=== PATIENT | female | born 1960 | race Caucasian/White ===

== ENCOUNTER 2020-11-13 09:48 | Day surgery (SDC) | payer OTHER ==
[2020-11-08 11:49] VITALS: BMI 17.8
[2020-11-13 11:32] VITALS: TEMP 98.3
[2020-11-13 11:56] VITALS: BP 120/67; PULSE 55
== END 2020-11-13 12:00 | disposition home or self-care (01) ==
LOC: FASU-ENDO 09:48
PROVIDERS: ATTEND Internal Medicine Gastroenterology
PROC: 0DB78ZX Excision of Stomach, Pylorus, Via Natural or Artificial Opening Endoscopic, Diagnostic (ICD-10-PCS; 2020-11-13)
PROC: 0DB48ZX Excision of Esophagogastric Junction, Via Natural or Artificial Opening Endoscopic, Diagnostic (ICD-10-PCS; 2020-11-13)
PROC: 0DB98ZX Excision of Duodenum, Via Natural or Artificial Opening Endoscopic, Diagnostic (ICD-10-PCS; principal; 2020-11-13 11:05)
DX: K29.50 Unspecified chronic gastritis without bleeding (principal); K22.8 Other specified diseases of esophagus